=== PATIENT | female | born 1950 | race Caucasian/White ===

== ENCOUNTER → 2017-11-21 | Outpatient (CLI) | payer MEDICARE, BC ==
[~2017-11-21] MED LIST: HEXAVITAMIN1 TA1 PO; IMURAN 50MG TAB50 MG PO; PEPCID 20MG TAB20 MG PO; PREDNISONE20 MG PO
== END ==
LOC: MC.RAD 14:27
DX: Z12.31 Encounter for screening mammogram for malignant neoplasm of breast (principal); N63.31 Unspecified lump in axillary tail of the right breast

== ENCOUNTER → 2017-11-25 | Outpatient (CLI) | payer MEDICARE, BC | LOC: MC.RAD 09:56 | DX: N63.31 Unspecified lump in axillary tail of the right breast (principal); R59.0 Localized enlarged lymph nodes ==

== ENCOUNTER → 2018-07-04 | Outpatient (CLI) | payer MEDICARE, BC | LOC: MC.RAD 13:53 | DX: R59.0 Localized enlarged lymph nodes (principal) ==

== ENCOUNTER → 2018-07-18 | Outpatient (CLI) | payer MEDICARE, BC | LOC: MC.RAD 12:35 | DX: R59.0 Localized enlarged lymph nodes (principal) ==

== ENCOUNTER 2023-04-10 09:43 | Outpatient (CLI) | payer MEDICARE, BC ==
[~2023-04-10] VITALS: Ht 160 cm; Wt 53.5 kg
[~2023-04-10 09:43] MED LIST changes: +HCTZ 25MG TAB25 MG PO; +K-DUR20 MEQ PO; +LIPITOR 40MG TA40 MG PO; +VIACTIV PO
[2023-04-10 09:57] VITALS: BP 137/73; PULSE 87; TEMP 98
[2023-04-10] MEDS ORDERED: MOTRIN 400400 MG/TAB PO (10:04)
--- NOTE | 2023-04-10 10:26 | NUR ---
pt tolerated prolia injection well. pt ambulated independently to [facility] following procedure and vital signs remained within normal limits. pt free from acute concerns and complaints at time of discharge.
== END 2023-04-10 10:20 | disposition home or self-care (01) ==
LOC: EUO 09:43
DX: M81.0 Age-related osteoporosis without current pathological fracture (principal)
CPT/HCPCS: J0897